=== PATIENT | female | born 1995 | race Caucasian/White ===

== ENCOUNTER 2017-05-26 07:23 | Emergency (ER) | payer OTHER ==
[2017-05-26 07:31] VITALS: BP 116/76; PULSE 78; TEMP 98.9; BMI 29.1
[2017-05-26 10:36] LABS: BASO % 0.3 % (0-2.0); EOS % 0.5 % (0-4.5); HEMATOCRIT 38.2 % (32.4-45.2); HEMOGLOBIN 12.3 GM/dL (10.7-15.3); LYMPH % 13.4 % (8-40); MCH 29.3 pg (25.7-33.7); MCHC 32.3 g/dl (32.0-36.0); MEAN CELL VOLUME 90.8 fl (80-96); MEAN PLT VOLUME 7.5 fl (7.5-11.1); MONO % 7.5 % (3.8-10.2); NEUT % 78.3 % (42.8-82.8); PLATELET COUNT 324 K/MM3 (134-434); RBC 4.21 M/mm3 (3.60-5.2); RDW 13.2 % (11.6-15.6); WHITE BLOOD COUNT 11.5 K/mm3 (4.0-10.0)
[2017-05-26 10:54] LABS: URINE APPEARANCE CLEAR; URINE BILIRUBIN NEGATIVE (NEGATIVE); URINE BLOOD NEGATIVE (NEGATIVE); URINE COLOR LTYELLOW; URINE GLUCOSE (UA) NEGATIVE (NEGATIVE); URINE KETONE NEGATIVE (NEGATIVE); URINE NITRITE NEGATIVE (NEGATIVE); URINE PROTEIN NEGATIVE (NEGATIVE); URINE UROBILINOGEN NEGATIVE mg/dL (0.2-1.0)
[2017-05-26 11:01] LABS: ALBUMIN 3.9 g/dl (3.4-5.0); ANION GAP 5 (8-16); BILIRUBIN,TOTAL 0.3 mg/dL (0.2-1.0); BLOOD UREA NITROGEN 6 mg/dL (7-18); CALCIUM 8.5 mg/dL (8.5-10.1); CHLORIDE 107 mmol/L (98-107); CO2 25 mmol/L (21-32); CREATININE 0.6 mg/dL (0.55-1.02); GLUCOSE,RANDOM 92 mg/dL (74-106); POTASSIUM 4.1 mmol/L (3.5-5.1); SGOT/AST 12 U/L (15-37); SGPT/ALT 17 U/L (12-78); SODIUM 137 mmol/L (136-145)
[2017-05-26 11:03] LABS: ALK PHOS 79 U/L (45-117); TOT PROT 7.3 g/dl (6.4-8.2)
[2017-05-26 11:04] LABS: HCG,QUALITATIVE URINE NEGATIVE
--- NOTE | 2017-05-26 11:31 | PDOC ---
History of Present Illness - General History Source: Patient Exam Limitations: No Limitations - History of Present Illness Initial Comments: 05/26/17 11:31 The patient is a 21 year old female, with no significant past medical history who presents to the emergency department with headache, abdominal pain and L leg pain. Patient reports intermittent tension headache, radiating from forehead to both eyes for the past week. Patient denies vision changes, light/ sound sensitivity, speech changes or neck stiffness. Patient has been taking 2 Extra strength Tylenols and Excedrin daily with no relief. Patient reports L vo pain radiating to feet for the past several months. Patient notes pain is worse at night and takes mothers Tramadol. Patient denies trauma or injury to the area. Patient also endorses abdominal pain that began 2 days ago with associated clear vomiting (nonbilious, nonbloody) and constipation. Patient reports to the ED for further evaluation of her complaints. LMP was Apr 25, 2016. Patient denies chest pain, headache or dizziness. Patient denies fever, chills, abdominal pain, nausea, vomit, diarrhea or constipation. Patient denies dysuria, frequency, urgency or hematuria. Patient denies sick contacts or recent travel. Allergies: NKA Past surgical history: None Social history: None PCP: None <Nicole Helton - Last Filed: 05/26/17 11:31> <Carlos Rajput - Last Filed: 05/26/17 12:30> - General Chief Complaint: Pain, Acute Stated Complaint: VOMITING,ABD PAIN Time Seen by Provider: 05/26/17 09:14 Past History <Nicole Helton - Last Filed: 05/26/17 11:31> - Past Medical History COPD: No - Suicide/Smoking/Psychosocial Hx Smoking History: Never smoked Have you smoked in the past 12 months: No Information on smoking cessation initiated: No Hx Alcohol Use: No Drug/Substance Use Hx: No Substance Use Type: None <Carlos Rajput - Last Filed: 05/26/17 12:30> - Past Medical History Allergies/Adverse Reactions: Allergies Allergy/AdvReac Type Severity Reaction Status Date / Time No Known Allergies Allergy Verified 05/26/17 07:26 Home Medications: Ambulatory Orders Nitrofurantoin Monohyd/M-Cryst [Macrobid -] 100 mg PO BID #14 capsule 05/26/17 Review of Systems - Review of Systems Constitutional: No: Chills, Fever, Night Sweats HEENTM: No: Blurred Vision, Nose Congestion Respiratory: No: Cough, Shortness of Breath Cardiac (ROS): No: Chest Pain ABD/GI: Yes: Constipated, Vomiting. No: Diarrhea, Nausea : No: Dysuria, Frequency Musculoskeletal: Yes: Muscle Pain Neurological: Yes: Headache Endocrine: No: Unexplained Weight Gain, Unexplained Weight Loss All Other Systems: Reviewed and Negative <Carlos Rajput - Last Filed: 05/26/17 12:30> *Physical Exam - Vital Signs Last Vital Signs Temp Pulse Resp BP Pulse Ox 98.9 F 78 18 116/76 100 05/26/17 07:27 05/26/17 07:27 05/26/17 07:27 05/26/17 07:27 05/26/17 07:27 - Physical Exam Comments: 05/26/17 11:32 GENERAL: The patient is awake, alert, and fully oriented, in no acute distress. HEAD: Normal with no signs of trauma. EYES: Pupils equal, round and reactive to light, extraocular movements intact, sclera anicteric, conjunctiva clear with no pallor. ENT: Ears normal, nares patent, oropharynx clear without exudates. Moist mucous membranes. NECK: Normal range of motion, supple without lymphadenopathy, JVD, or masses. LUNGS: Breath sounds equal, clear to auscultation bilaterally. No wheeze/ crackles. HEART: Regular rate and rhythm, normal S1 and S2 without murmur or rub. ABDOMEN: Soft/nontender/nondistended. BS wnl. No guarding or rebound. No palpable masses. No hepatosplenomegaly. EXTREMITIES: Normal range of motion, no edema. No clubbing or cyanosis. No cords, erythema, or tenderness. NEUROLOGICAL: Mental status: The patient is alert and oriented x3. Cranial nerves: Cranial nerves II through XII are intact Motor: The upper extremities are 5 over 5 in all muscle groups. The lower extremities are 5 over 5 in all muscle groups. No pronator drift. Sensation: Sensation is intact to light touch throughout. Cerebellar: Oajqzs-faqkpg-bsds is normal in both upper extremities. Heel-knee- vo is normal in both lower extremities. Reflexes: 2+ and symmetric in the upper and lower extremities. Gait: Normal. Heel and toe walking are normal. Tandem gait is normal. PSYCH: Normal mood, normal affect. SKIN: Warm, Dry, normal turgor, no rashes or lesions noted. <Nicole Helton - Last Filed: 05/26/17 11:31> - Vital Signs Last Vital Signs Temp Pulse Resp BP Pulse Ox 98.9 F 78 18 116/76 100 05/26/17 07:27 05/26/17 07:27 05/26/17 07:27 05/26/17 07:27 05/26/17 07:27 <Carlos Rajput - Last Filed: 05/26/17 12:30> ED Treatment Course - LABORATORY CBC & Chemistry Diagram: 05/26/17 10:18 05/26/17 10:18 - ADDITIONAL ORDERS Additional order review: Laboratory Results 05/26/17 05/26/17 10:35 10:18 Sodium 137 Potassium 4.1 Chloride 107 Carbon Dioxide 25 Anion Gap 5 L BUN 6 L Creatinine 0.6 Creat Clearance w eGFR > 60 Random Glucose 92 Calcium 8.5 Total Bilirubin 0.3 AST 12 L ALT 17 Alkaline Phosphatase 79 Total Protein 7.3 Albumin 3.9 Urine HCG, Qual Negative 05/26/17 10:18 RBC 4.21 MCV 90.8 MCHC 32.3 RDW 13.2 MPV 7.5 Neutrophils % 78.3 Lymphocytes % 13.4 Monocytes % 7.5 Eosinophils % 0.5 Basophils % 0.3 <Nicole Helton - Last Filed: 05/26/17 11:31> - LABORATORY CBC & Chemistry Diagram: 05/26/17 10:18 05/26/17 10:18 - ADDITIONAL ORDERS Additional order review: Laboratory Results 05/26/17 05/26/17 10:35 10:18 Sodium 137 Potassium 4.1 Chloride 107 Carbon Dioxide 25 Anion Gap 5 L BUN 6 L Creatinine 0.6 Creat Clearance w eGFR > 60 Random Glucose 92 Calcium 8.5 Total Bilirubin 0.3 AST 12 L ALT 17 Alkaline Phosphatase 79 Total Protein 7.3 Albumin 3.9 Urine HCG, Qual Negative 05/26/17 10:18 RBC 4.21 MCV 90.8 MCHC 32.3 RDW 13.2 MPV 7.5 Neutrophils % 78.3 Lymphocytes % 13.4 Monocytes % 7.5 Eosinophils % 0.5 Basophils % 0.3 <Carlos Rajput - Last Filed: 05/26/17 12:30> Medical Decision Making - Medical Decision Making 05/26/17 11:27 A portion of this note was documented by scribe services under my direction. I have reviewed the details of the note, within reason, and agree with the documentation with the following case summary and management plan written by me. Healthy 21-year-old female with no significant past medical history presents with several nonspecific complaints that have been ongoing for months. Patient reports several months of nighttime left vo pain, no difficulty ambulating and has no pain during the day. No motor or sensory deficits, no traumatic history. Also now complaining of nonspecific symptoms of generalized malaise and intermittent bitemporal headache, no associated vision changes or speech changes or focal weakness, no trauma. No constitutional symptoms, no travel, no toxic habits. Patient self treats her headache with Tylenol and Excedrin, self treats her leg pain with her mother's tramadol. Vital signs normal Urine is negative Exam is completely normal, including neurological exam 21-year-old female presents with nonspecific and chronic complaints, no red flags on history or physical exam, no abnormal findings. CBC and chemistry are within normal limits, no anemia or leukocytosis Urine is negative, urinalysis pending No indication for emergent imaging, needs PCP referral which we will provide. 05/26/17 12:23 White count 11.5, normal differential. Chemistries are within normal limits, urinalysis with 2+ leuk esterase and 7 white blood cells, urine negative. Urine culture sent, will treat empirically for UTI, give PMD referral and return precautions. <Carlos Rajput - Last Filed: 05/26/17 12:30> *DC/Admit/Observation/Transfer - Attestations Scribe Attestion: 05/26/17 11:32 Documentation prepared by Nicole Helton, acting as medical office administrator for Carlos Rajput MD <Nicole Helton - Last Filed: 05/26/17 11:31> <Carlos Rajput - Last Filed: 05/26/17 12:30> Diagnosis at time of Disposition: Chronic headache Qualifiers: Headache type: unspecified Intractability: not intractable Qualified Code(s): R51 - Headache UTI (urinary tract infection) Qualifiers: Urinary tract infection type: acute cystitis Hematuria presence: without hematuria Qualified Code(s): N30.00 - Acute cystitis without hematuria - Discharge Dispostion Disposition: HOME Condition at time of disposition: Good - Prescriptions Prescriptions: Nitrofurantoin Monohyd/M-Cryst [Macrobid -] 100 mg PO BID #14 capsule - Referrals Referrals: Forrest Marin [Primary Care Provider] - Stephan Rodriguez MD [Staff Physician] - Lucian Harris MD [Staff Physician] - - Patient Instructions Printed Discharge Instructions: DI for Urinary Tract Infection (UTI), DI for Headache Additional Instructions: Activity as tolerated. Stay hydrated. Blood tests today were normal, but a urine test shows evidence of infection. Take Macrobid as prescribed as an antibiotic. Tylenol 1000 mg every 8 hours and/or ibuprofen 600 mg every 8 hours as needed for pain. Avoid using tramadol, this can cause constipation and can be addicting. For constipation relief, take [id number] MiraLAX or fleets enemas. You should follow up with a primary doctor as soon as possible regarding today' s emergency department visit. Consider calling the [facility]/Dr. Harris or Dr. Rodriguez for an appointment. Outpatient imaging of your leg can be done if your leg pain persists. Return to the emergency department for any new or concerning symptoms, particularly severe headache, vomiting or confusion or focal weakness, fevers or chills, difficulty urinating or flank pain. - Post Discharge Activity
[2017-05-26 11:33] LABS: URINE LEUK ESTERASE 2+ (NEGATIVE)
[2017-05-26 11:58] LABS: EPI CELLS RARE /HPF (FEW); URINE MUCUS MANY
== END 2017-05-26 12:38 | disposition home or self-care (01) ==
LOC: JER 07:23
DX: N30.00 Acute cystitis without hematuria (principal); R51 Headache
CPT/HCPCS: 36415; 80053; 81003; 81015; 84703; 85025; 87086; 99283-25

== ENCOUNTER 2017-08-16 05:11 | Emergency (ER) | payer OTHER ==
[2017-08-16 05:26] VITALS: TEMP 98.7; BMI 27.3
--- NOTE | 2017-08-16 05:35 | PDOC ---
History of Present Illness - General Chief Complaint: Pain, Acute Stated Complaint: PAIN History Source: Patient Exam Limitations: No Limitations - History of Present Illness Initial Comments: The patient is a 21 yo F with no significant PMHx presenting with lower abdominal pain since 10pm yesterday. The pain was sudden in onset, located in the suprapubic region, was cramping in nature, non radiating 7/10, lasted for a few minutes then resolved spontaneously. She had just got out of school when it happened and was able to ride the bus and walk to get home. At about midnight, the pain resumed, at about 8-9/10 and remained constant and cramping stilll in the suprapubic area until she presented in the emergency room. In the emergency room, she moved her bowel- of soft, non bloody stool and had one episode of nonbloody, non bilous vomiting. This brought the pain to a 3-4/10. No dysuria, no burning on micturition, no previous hx of stones. Pt's last meal was around 5pm yesterday of fresh homemade food. No hx od similar symptoms in anyone else. No hx of jaundice, diarrhea or constipation, hx of passage of stones or vaginal discharge. Patient had similar symptoms about 6 weeks prior that resolved on its own. Pt denies use of any medication, no alcohol or drug abuse. LMP was approximately 2weeks ago usually lasting 3-4 days. Patient denies being sexually active. Timing/Duration: changing over time Severity: moderate Associated Symptoms: reports: headaches, nausea/vomiting (one episode of vomiting). denies: chest pain, cough, diaphoresis, fever/chills, loss of appetite, shortness of breath Past History - Past Medical History Allergies/Adverse Reactions: Allergies Allergy/AdvReac Type Severity Reaction Status Date / Time No Known Allergies Allergy Verified 08/16/17 05:24 Home Medications: Ambulatory Orders NK [No Known Home Medication] 08/16/17 COPD: No - Suicide/Smoking/Psychosocial Hx Smoking History: Never smoked Have you smoked in the past 12 months: No Information on smoking cessation initiated: No Hx Alcohol Use: No Drug/Substance Use Hx: No Substance Use Type: None Review of Systems - Review of Systems Able to Perform ROS?: Yes Is the patient limited Tamazight proficient: No Constitutional: No: Chills, Diaphoresis, Fever, Loss of Appetite, Malaise, Night Sweats HEENTM: No: Throat Pain, Throat Swelling Respiratory: No: Cough, Shortness of Breath, SOB with Exertion, Stridor, Wheezing Cardiac (ROS): No: Chest Pain, Edema ABD/GI: Yes: Nausea, Poor Fluid Intake, Vomiting (one episode), Abdominal cramping. No: Abdominal Distended, Constipated, Diarrhea : No: Burning, Dysuria, Discharge, Frequency, Flank Pain, Hematuria, Urgency Musculoskeletal: No: Joint Pain, Joint Swelling, Joint Stiffness Integumentary: No: Change in Color, Rash Neurological: Yes: Headache (intermittent occipital headache) Hematologic/Lymphatic: No: Bleeding Diathesis *Physical Exam - Vital Signs Last Vital Signs Temp Pulse Resp BP Pulse Ox 98.7 F 88 18 124/83 100 08/16/17 05:24 08/16/17 05:24 08/16/17 05:24 08/16/17 05:24 08/16/17 05:24 - Physical Exam General Appearance: Yes: Appropriately Dressed. No: Apparent Distress HEENT: positive: EOMI, GINGER, Normal ENT Inspection, Symmetrical. negative: Tonsillar Erythema, Nasal Congestion Neck: positive: Supple. negative: Tender Respiratory/Chest: positive: Normal Breath Sounds. negative: Chest Tender, Respiratory Distress Cardiovascular: positive: Regular Rate, S1, S2. negative: Edema Gastrointestinal/Abdominal: positive: Normal Bowel Sounds, Flat, Soft. negative : Tenderness Musculoskeletal: negative: CVA Tenderness Extremity: positive: Normal Capillary Refill, Normal Inspection, Normal Range of Motion Integumentary: positive: Dry, Warm. negative: Jaundice Neurologic: positive: Fully Oriented, Alert, Motor Strength 5/5 ED Treatment Course - LABORATORY CBC & Chemistry Diagram: 08/16/17 06:55 08/16/17 06:55 Medical Decision Making - Medical Decision Making 08/16/17 06:44 Patient's pain completely resolved after the patient passed stool and threw up once in the ED. Differential diagnosis include: Ectopic LMP-2 weeks ago, UTI, renal stones, mid cycle pain, acute pancreatitis CBC, CMP, UA, hcg, lipase When the urine sample was collected, it showed very dark almost coke-colored urine Patient was hydrated with one liter of normal saline. Pending lab results- patient was signed out to the day team. *DC/Admit/Observation/Transfer Diagnosis at time of Disposition: Abdominal discomfort Hematuria Qualifiers: Hematuria type: asymptomatic microscopic Qualified Code(s): R31.21 - Asymptomatic microscopic hematuria - Discharge Dispostion Disposition: HOME Condition at time of disposition: Stable - Referrals Referrals: Forrest Marin [Primary Care Provider] - - Patient Instructions Printed Discharge Instructions: Blood in Urine Additional Instructions: You were seen here for your abdominal discomfort. Your labs were normal, however your urine showed many red blood cells. Your CAT scan showed no kidney stones at this point. We recommend you follow with your primary physician to follow the blood in your urine If you develop any concerning symptoms such as pain while urinating or shortness of breath please feel free to return to the ED. - Post Discharge Activity
--- NOTE | 2017-08-16 06:16 | PDOC ---
Attending Attestation - Resident Resident Name: Glenis Smith I - ED Attending Attestation I have performed the following: I have examined & evaluated the patient, The case was reviewed & discussed with the resident, I agree w/resident's findings & plan, Exceptions are as noted - HPI HPI: 08/16/17 06:15 21y F no significant pmhx presents with lower abdominal pain starting last night without n/v, fever/chills, hematuria, frequency, diarrhea, melena, bpr, cp , sob. on exam pt well appearing in no disstress abd soft nontender ddx includes ovarian pain/mittlsmiertz (pt 2 weeks after her last period), , uti/cystitis will ck labs, ua will reassess
[2017-08-16] MEDS ORDERED: SODIUM CHLORIDE 0.9% 500 ML INFUS.BAG IV ONE (06:49)
[2017-08-16 07:09] LABS: URINE APPEARANCE TURBID; URINE BILIRUBIN NEGATIVE (<2.0 mg/dL); URINE BLOOD 3+ (NEGATIVE); URINE GLUCOSE (UA) NEGATIVE (NEGATIVE); URINE KETONE 1+ (NEGATIVE); URINE LEUK ESTERASE NEGATIVE (NEGATIVE); URINE NITRITE NEGATIVE (NEGATIVE); URINE UROBILINOGEN NEGATIVE mg/dL (0.2-1.0)
[2017-08-16 07:10] LABS: BASO % 0.5 % (0-2.0); EOS % 1.2 % (0-4.5); HEMATOCRIT 38.4 % (32.4-45.2); HEMOGLOBIN 12.8 GM/dL (10.7-15.3); LYMPH % 15.3 % (8-40); MCHC 33.2 g/dl (32.0-36.0); MEAN CELL VOLUME 90.3 fl (80-96); MEAN PLT VOLUME 8.2 fl (7.5-11.1); MONO % 8.8 % (3.8-10.2); NEUT % 74.2 % (42.8-82.8); PLATELET COUNT 329 K/MM3 (134-434); RBC 4.25 M/mm3 (3.60-5.2); RDW 14.2 % (11.6-15.6); WHITE BLOOD COUNT 10.4 K/mm3 (4.0-10.0)
--- NOTE | 2017-08-16 07:14 | PDOC ---
*Physical Exam - Vital Signs Last Vital Signs Temp Pulse Resp BP Pulse Ox 98.7 F 88 18 124/83 100 08/16/17 05:24 08/16/17 05:24 08/16/17 05:24 08/16/17 05:24 08/16/17 05:24 - Physical Exam Comments: 08/16/17 07:13 21yo F who was signed out to me by Dr. Smith. Came in with abdominal pain which resolved and presented with dark urine. Awaiting UA and labs. No complaints at this time. ED Treatment Course - LABORATORY CBC & Chemistry Diagram: 08/16/17 06:55 08/16/17 06:55 - Medications Given in the ED: ED Medications Discontinued Medications Generic Name Dose Route Start Last Admin Trade Name Freq PRN Reason Stop Dose Admin Sodium Chloride 1,000 ml 08/16/17 06:49 08/16/17 07:09 Normal Saline - IV 08/16/17 06:50 1,000 ml ONCE ONE Administration Medical Decision Making - Medical Decision Making 08/16/17 07:56 3+ Blood in urine with many RBCs DDx kidney stone Pt without any abdominal pain currently, but agreeable to CT scan 08/16/17 08:44 CT report showing no ureteral calculus or hydronephrosis. Pt currently asymptomatic without tenderness and can tolerate fluids so clinically doubt any colitis. Pt to follow with PCP for hematuria and okay to discharge *DC/Admit/Observation/Transfer Diagnosis at time of Disposition: Abdominal discomfort Hematuria Qualifiers: Hematuria type: asymptomatic microscopic Qualified Code(s): R31.21 - Asymptomatic microscopic hematuria - Discharge Dispostion Disposition: HOME Condition at time of disposition: Stable Admit: No - Referrals Referrals: Forrest Marin [Primary Care Provider] - - Patient Instructions Additional Instructions: You were seen here for your abdominal discomfort. Your labs were normal, however your urine showed many red blood cells. Your CAT scan showed no kidney stones at this point. We recommend you follow with your primary physician to follow the blood in your urine If you develop any concerning symptoms such as pain while urinating or shortness of breath please feel free to return to the ED. - Post Discharge Activity
[2017-08-16 07:19] LABS: URINE COLOR DK YELLOW; URINE PROTEIN 2+ (NEGATIVE)
[2017-08-16 07:22] LABS: EPI CELLS RARE /HPF (FEW); URINE MUCUS MANY
[2017-08-16 07:35] LABS: ALBUMIN 4.2 g/dl (3.4-5.0); ALK PHOS 82 U/L (45-117); ANION GAP 4 (8-16); BILIRUBIN,TOTAL 0.4 mg/dL (0.2-1.0); BLOOD UREA NITROGEN 8 mg/dL (7-18); CALCIUM 9.2 mg/dL (8.5-10.1); CHLORIDE 107 mmol/L (98-107); CO2 28 mmol/L (21-32); CREATININE 0.7 mg/dL (0.55-1.02); GLUCOSE,RANDOM 103 mg/dL (74-106); POTASSIUM 3.9 mmol/L (3.5-5.1); SGOT/AST 11 U/L (15-37); SGPT/ALT 11 U/L (12-78); SODIUM 139 mmol/L (136-145); TOT PROT 7.8 g/dl (6.4-8.2)
[2017-08-16 09:15] VITALS: BP 109/68; PULSE 76
== END 2017-08-16 09:15 | disposition home or self-care (01) ==
LOC: JER 05:11
DX: R10.30 Lower abdominal pain, unspecified (principal); R31.21 Asymptomatic microscopic hematuria
CPT/HCPCS: 36415; 74176; 80053; 81003; 81015; 83690; 84703; 85025; 99284-25

== ENCOUNTER 2017-08-20 06:20 | Emergency (ER) | payer OTHER ==
[2017-08-20 06:56] VITALS: BP 110/73; PULSE 75; TEMP 98.7; BMI 23.1
--- NOTE | 2017-08-20 06:57 | PDOC ---
History of Present Illness - General Chief Complaint: Pain Stated Complaint: ABD PAIN Time Seen by Provider: 08/20/17 06:55 History Source: Patient - History of Present Illness Initial Comments: 08/20/17 07:12 Patient is a 21 year old female who presents to the ED c/o abdominal pain. Pain is sharp, 10/10, localized to her mid lower abdomen without radiation and patient cannot identify any triggering or relieving factors. Patient is tolerating PO intake and states her last BM was prior to presentation this morning. As per EMR patient was evaluated in our facilty on 08/16/[address] showed no nephrolithiasis possible colitis. Patient denies chest pain, headache or dizziness. Patient denies fever, chills, abdominal pain, nausea, vomit, diarrhea or constipation. Patient denies dysuria, frequency, urgency or hematuria. Patient denies sick contacts or recent travel. Allergies: NKA Past surgical history: None Social history: None PCP: None Past History - Past Medical History Allergies/Adverse Reactions: Allergies Allergy/AdvReac Type Severity Reaction Status Date / Time No Known Allergies Allergy Verified 08/20/17 06:56 Home Medications: Ambulatory Orders Nitrofurantoin Monohyd/M-Cryst [Macrobid -] 100 mg PO BID #14 capsule 08/20/17 Ondansetron HCl [Zofran] 4 mg PO BID #6 tablet 08/20/17 Phenazopyridine HCl [Pyridium] 200 mg PO TID 2 Days #6 tablet 08/20/17 COPD: No - Suicide/Smoking/Psychosocial Hx Smoking History: Never smoked Have you smoked in the past 12 months: No Information on smoking cessation initiated: No Hx Alcohol Use: No Drug/Substance Use Hx: No Substance Use Type: None Review of Systems - Review of Systems Constitutional: No: Chills, Fever HEENTM: No: Recent change in vision Respiratory: No: Cough, Shortness of Breath Cardiac (ROS): No: Chest Pain, Lightheadedness, Palpitations, Syncope ABD/GI: Yes: Nausea. No: Constipated, Diarrhea, Vomiting : No: Burning, Dysuria *Physical Exam - Vital Signs Last Vital Signs Temp Pulse Resp BP Pulse Ox 98.7 F 75 18 110/73 100 08/20/17 06:53 08/20/17 06:53 08/20/17 06:53 08/20/17 06:53 08/20/17 06:53 - Physical Exam General Appearance: Yes: Nourished, Appropriately Dressed Neck: positive: Trachea midline, Supple Respiratory/Chest: positive: Lungs Clear Cardiovascular: positive: S1, S2. negative: Edema, JVD Gastrointestinal/Abdominal: positive: Normal Bowel Sounds, Soft, Other ( Suprapubic TTP). negative: Distended, Guarding, Rebound Musculoskeletal: negative: CVA Tenderness (R), CVA Tenderness (L) Extremity: positive: Normal Capillary Refill, Normal Inspection Integumentary: positive: Normal Color, Dry, Warm ED Treatment Course - LABORATORY CBC & Chemistry Diagram: 08/20/17 07:20 08/20/17 07:20 Medical Decision Making - Medical Decision Making 08/20/17 07:21 21 year old well appearing female presents to ED c/o abdominal pain. Frontal diagnosis includes colitis, cystitis, . Will obtain belly labs, serum . GI cocktail. Reassess. 08/20/17 08:09 CBC shows no leukocytosis, CMP/Lipase pending. Serum cocktail 08/20/17 08:19 Patient requesting PO intake, "oatmeal" -- receiving GI cocktail. 08/20/17 08:31 UA shows 3+ blood, no WBC, rare epithelial cells. Lipase and lactate wnL. 08/20/17 08:47 Repeat belly exam shows no TTP, normoactive BS, patient tolerating PO intake, improved. Clinical suspicion for acute cystitis given localized suprapubic pain /TTP and 3+ blood in UA. Will discharge home with Pyridium + abx. Patient will likely need outpatient cystoscopy. I discussed the physical exam findings, ancillary test results and final diagnoses with the patient. I answered all of the patient's questions. The patient was satisfied with the care received and felt comfortable with the discharge plan and treatment plan. The patient will return to the Emergency Department with any new, persistent or worsening symptoms. *DC/Admit/Observation/Transfer Diagnosis at time of Disposition: Abdominal pain - Discharge Dispostion Disposition: HOME Condition at time of disposition: Fair Admit: No - Prescriptions Prescriptions: Nitrofurantoin Monohyd/M-Cryst [Macrobid -] 100 mg PO BID #14 capsule Ondansetron HCl [Zofran] 4 mg PO BID #6 tablet Phenazopyridine HCl [Pyridium] 200 mg PO TID 2 Days #6 tablet - Referrals Referrals: Forrest Marin [Primary Care Provider] - - Patient Instructions Printed Discharge Instructions: DI for Acute Cystitis Additional Instructions: You were evaluated today for abdominal pain. An antibiotic and a pain medication has been sent to your pharmacy. Please take the entire antibiotic course. Follow up with your primary care doctor on Tuesday. Return to the Emergency Department for any new/worsening/concerning symptoms. - Post Discharge Activity
[2017-08-20] MEDS ORDERED: FAMOTIDINE IV 20 MG/12 ML VIAL IVPUSH ONE (07:19)
[2017-08-20] MEDS ORDERED: SODIUM CHLORIDE 0.9% 500 ML INFUS.BAG IV ONE (07:19)
[2017-08-20] MEDS ORDERED: MAG HYDROX/AL HYDROX/SIMETH 30 ML UNIT-DOSE CUP PO ONE (07:19)
[2017-08-20] MEDS ORDERED: MAG HYDROX/AL HYDROX/SIMETH 30 ML UNIT-DOSE CUP ONE (07:24)
[2017-08-20] MEDS ORDERED: FAMOTIDINE 20 MG/50 ML IVPB 20 MG/50 ML MG IVPB ONE (07:24)
[2017-08-20 07:36] LABS: BASO % 0.3 % (0-2.0); EOS % 1.7 % (0-4.5); HEMOGLOBIN 11.9 GM/dL (10.7-15.3); LYMPH % 19.1 % (8-40); MCH 30.6 pg (25.7-33.7); MCHC 34.1 g/dl (32.0-36.0); MEAN CELL VOLUME 89.8 fl (80-96); MEAN PLT VOLUME 8.4 fl (7.5-11.1); MONO % 11.3 % (3.8-10.2); NEUT % 67.6 % (42.8-82.8); PLATELET COUNT 301 K/MM3 (134-434); RDW 14.1 % (11.6-15.6); WHITE BLOOD COUNT 9.2 K/mm3 (4.0-10.0)
[2017-08-20 07:56] LABS: URINE APPEARANCE SLCLOUDY; URINE BILIRUBIN NEGATIVE (<2.0 mg/dL); URINE BLOOD 3+ (NEGATIVE); URINE COLOR YELLOW; URINE GLUCOSE (UA) NEGATIVE (NEGATIVE); URINE KETONE NEGATIVE (NEGATIVE); URINE NITRITE NEGATIVE (NEGATIVE); URINE UROBILINOGEN NEGATIVE mg/dL (0.2-1.0)
[2017-08-20 08:00] LABS: URINE LEUK ESTERASE 1+ (NEGATIVE); URINE PROTEIN 1+ (NEGATIVE)
[2017-08-20 08:02] LABS: EPI CELLS RARE /HPF (FEW); URINE MUCUS FEW
[2017-08-20 08:23] LABS: ALBUMIN 3.8 g/dl (3.4-5.0); ALK PHOS 73 U/L (45-117); ANION GAP 7 (8-16); BILIRUBIN,TOTAL 0.3 mg/dL (0.2-1.0); BLOOD UREA NITROGEN 10 mg/dL (7-18); CALCIUM 8.8 mg/dL (8.5-10.1); CHLORIDE 108 mmol/L (98-107); CO2 25 mmol/L (21-32); CREATININE 0.7 mg/dL (0.55-1.02); GLUCOSE,RANDOM 100 mg/dL (74-106); LIPASE 130 U/L (73-393); POTASSIUM 4.2 mmol/L (3.5-5.1); SGOT/AST 11 U/L (15-37); SGPT/ALT 9 U/L (12-78); SODIUM 140 mmol/L (136-145)
--- NOTE | 2017-08-23 07:27 | PDOC ---
Patient Follow-up (Call Back) - Post ED Follow - Up Condition at time of discharge: Fair Disposition at time of original discharge: HOME Reason for Call Back: Abnwl. Microbiology (Patient currently on Macrobid. Urine culture shows preliminary organism 1strep agalactiae group B. Will await final report.)
--- NOTE | 2017-08-24 14:56 | PDOC ---
Patient Follow-up (Call Back) - Post ED Follow - Up Condition at time of discharge: Fair Disposition at time of original discharge: HOME Reason for Call Back: Abnwl. Microbiology (Bacteria sensitive to penicillin, amoxicillin. Macrobid not appropriate to treat S. Agalctaie. Amoxicillin rx sent to pharmacy. Pt agrees to take the medication and will stop macrobid.)
== END 2017-08-20 08:59 | disposition home or self-care (01) ==
LOC: JER 06:20
PROC: 3E033GC Introduction of Other Therapeutic Substance into Peripheral Vein, Percutaneous Approach (ICD-10-PCS; principal; 2017-08-20)
DX: N30.01 Acute cystitis with hematuria (principal)
CPT/HCPCS: 36415; 80053; 81003; 81015; 83605; 83690; 84703; 85025; 87086; 87186; 96374; 99283-25

== ENCOUNTER 2018-01-09 08:19 | Emergency (ER) | payer OTHER ==
[2018-01-09 08:39] VITALS: BP 106/59; PULSE 81; TEMP 98.7; BMI 30.6
[2018-01-09] MEDS ORDERED: diphenhydrAMINE HCL 25 MG CAPSULE (FP) PO ONE ×2 (08:56→08:59)
--- NOTE | 2018-01-09 09:01 | PDOC ---
History of Present Illness - General Chief Complaint: Eye Problem Stated Complaint: FACE SWOLLEN/ ICHY ALL OVER BODY Time Seen by Provider: 01/09/18 08:47 History Source: Patient Exam Limitations: No Limitations - History of Present Illness Initial Comments: 01/09/18 09:02 State had onset of itching rash to back of legs last night. Has not had any recent exposures, has not been outdoors, no one else at home has a rash. States suffered from unknown type of urticaria as a child where she would break out in hives and they were never identified as to cause. Patient denies any changes of soaps, creams, detergents. Has not had any recent travel or known infestation. Taken no medication or used any creams for relief of same. States suffered also on face and had left eyelid that was swollen this morning with some mild discoloration and scaliness. Denies trauma, any recent illness, no history of eczema Timing/Duration: unsure, 24 hours Severity: moderate Associated Symptoms: reports: rash. denies: cough, fever/chills, loss of appetite, malaise, nausea/vomiting Past History - Travel Traveled outside of the country in the last 30 days: No Close contact w/someone who was outside of country & ill: No - Past Medical History Allergies/Adverse Reactions: Allergies Allergy/AdvReac Type Severity Reaction Status Date / Time No Known Allergies Allergy Verified 01/09/18 08:33 Home Medications: Ambulatory Orders Ondansetron HCl [Zofran] 4 mg PO BID #6 tablet 08/20/17 Phenazopyridine HCl [Pyridium] 200 mg PO TID 2 Days #6 tablet 08/20/17 Amoxicillin - [Amoxicillin 500mg Capsule -] 500 mg PO BID #14 capsule 08/24/17 Diphenhydramine HCl [Benadryl -] 25 mg PO Q8H PRN #21 capsule 01/09/18 COPD: No DVT: No Other medical history: lmp 12/14/17 - Suicide/Smoking/Psychosocial Hx Smoking History: Never smoked Have you smoked in the past 12 months: No Hx Alcohol Use: No Drug/Substance Use Hx: No Substance Use Type: None Review of Systems - Review of Systems Able to Perform ROS?: Yes Is the patient limited Latvian proficient: Yes Constitutional: Yes: Symptoms Reported, See HPI. No: Fever, Loss of Appetite, Malaise HEENTM: Yes: Symptoms Reported, See HPI, Tearing (w/u with some swellign to upper left lid, no drainage, no inury, no redness. ). No: Eye Pain, Blurred Vision Respiratory: Yes: See HPI. No: Symptoms reported, Cough, Wheezing Integumentary: Yes: Symptoms Reported, See HPI, Lesions, Pruritus, Rash Neurological: Yes: See HPI. No: Symptoms reported, Headache All Other Systems: Reviewed and Negative *Physical Exam - Vital Signs Last Vital Signs Temp Pulse Resp BP Pulse Ox 98.7 F 81 16 106/59 99 01/09/18 08:25 01/09/18 08:25 01/09/18 08:25 01/09/18 08:25 01/09/18 08:25 - Physical Exam General Appearance: Yes: Nourished, Appropriately Dressed, Apparent Distress, Mild Distress HEENT: positive: GINGER, Normal ENT Inspection, Normal Voice (no swelling pharynx , tongue, or airway.), TMs Normal, Pharynx Normal, Other (left lid with mild excoriation and faint swelling to upper lid. ). negative: Nasal Congestion, Rhinorrhea Neck: positive: Supple. negative: Tender Respiratory/Chest: positive: Lungs Clear, Normal Breath Sounds. negative: Stridor, Wheezing Cardiovascular: positive: Regular Rhythm Musculoskeletal: positive: Normal Inspection Extremity: positive: Normal Capillary Refill, Normal Inspection, Normal Range of Motion. negative: Tender Integumentary: positive: Warm, Pale, Hives (multiple to bilateral thighs posterior, no vesicular patterns, states are better then were last night.), Rash Neurologic: positive: plate colorer II-XII NML intact, Fully Oriented, Alert, Normal Mood/ Affect, Normal Response, Motor Strength 5/5 Medical Decision Making - Medical Decision Making 01/09/18 09:06 Urticaria of unknown origin. No evidence of anaphylaxis infectiousness or infected lesions. Possible idiopathic. We will recommend conservative treatment with Benadryl and researched to try to identify any contributing factors. And we 'll refer to dermatology/supervisor functional testing for further study as needed *DC/Admit/Observation/Transfer Diagnosis at time of Disposition: Urticaria - Discharge Dispostion Disposition: HOME Condition at time of disposition: Stable Decision to Admit order: No - Referrals Referrals: Santosh Nath MD [Staff Physician] - - Patient Instructions Printed Discharge Instructions: DI for Hives Additional Instructions: Rest, keep cool and dry- avoid strenuous activity or hot /humid environments Less hot showers, no abrasive soaps May use heavy creams like Eucerin or Cetaphil to keep skin moist May apply Aveeno, calamine lotion, [id number] hydrocortisone creams as needed for symptoms May use Benadryl at night for antihistamine, Zyrtec/ Anna or Claritin for daytime antihistamine use to help with itching May use [id number] hydrocortisone cream on all areas except face Try to identify cause for rash and avoid exposures Followup with PMD in one week if no resolution Make appointment with chemistry tutor for evaluation when possible - Post Discharge Activity Forms/Work/School Notes: Back to Work
== END 2018-01-09 09:08 | disposition home or self-care (01) ==
LOC: JERFT 08:19
DX: L50.9 Urticaria, unspecified (principal)
CPT/HCPCS: 99281-25

== ENCOUNTER 2019-06-01 13:54 | Emergency (ER) | payer OTHER ==
[2019-06-01] MEDS ORDERED: SODIUM CHLORIDE 0.9% 500 ML INFUS.BAG IV ONE (14:11)
[2019-06-01] MEDS ORDERED: ONDANSETRON 4 MG/2 ML VIAL IVPB ONE (14:11)
--- NOTE | 2019-06-01 14:11 | PDOC ---
Rapid Medical Evaluation Chief Complaint: Nausea/Vomiting Time Seen by Provider: 06/01/19 14:08 Medical Evaluation: Allergies Allergy/AdvReac Type Severity Reaction Status Date / Time No Known Allergies Allergy Verified 01/09/18 08:33 06/01/19 14:08 23 year old NVD, abdominal pain since last night. sister with NV yesterday and is feeling better today PE; patient alert ox3. actively vomiting in triage A: gastroenteritis/ abdominal pain P;cbc, cmp ua urine Discharge Disposition - Diagnosis Gastroenteritis Abdominal pain Qualifiers: Abdominal location: generalized Qualified Code(s): R10.84 - Generalized abdominal pain - Referrals - Patient Instructions - Post Discharge Activity
[2019-06-01 14:17] VITALS: BMI 28.3
[2019-06-01] MEDS ORDERED: FAMOTIDINE 20 MG/50 ML IVPB 20 MG/50 ML MG IVPB ONE ×2 (14:41→15:14)
[2019-06-01] MEDS ORDERED: ACETAMINOPHEN 1000 MG/100 ML VIAL (NON FORMULARY) IVPB ONE (14:41)
[2019-06-01] MEDS ORDERED: SODIUM CHLORIDE 1,000 ML IV STA (14:42)
[2019-06-01] MEDS ORDERED: ACETAMINOPHEN INJECTION 100 ML IVPB ONE (15:13)
[2019-06-01] MEDS ORDERED: ONDANSETRON 4 MG/2 ML VIAL ONE (15:13)
--- NOTE | 2019-06-01 15:14 | PDOC ---
History of Present Illness - General Chief Complaint: Nausea/Vomiting Stated Complaint: ABD PAIN/NAUSEA Time Seen by Provider: 06/01/19 14:08 History Source: Patient Exam Limitations: No Limitations - History of Present Illness Initial Comments: 06/01/19 14:49 Patient is a 23F with no significant PMH here today complaining of diarrhea, vomiting, and LUQ abdominal pain that onset last night. Patient reports similar symptoms for her sister. Patient denies blood in vomit or diarrhea. Denies dysuria. LMP 2 weeks ago. No surgical history. Denies vaginal pain and vaginal discharge. Denies chest pain and shortness of breath. Denies fevers, endorses chills. Past History - Past Medical History Allergies/Adverse Reactions: Allergies Allergy/AdvReac Type Severity Reaction Status Date / Time No Known Allergies Allergy Verified 06/01/19 14:17 Home Medications: Ambulatory Orders Ondansetron [Zofran *Odt*] 4 mg SL BID #6 od.tablet 06/01/19 COPD: No DVT: No - Psycho Social/Smoking Cessation Hx Smoking History: Never smoked Have you smoked in the past 12 months: No Information on smoking cessation initiated: No Hx Alcohol Use: No Drug/Substance Use Hx: No Substance Use Type: None Review of Systems - Review of Systems Able to Perform ROS?: Yes Comments:: 06/01/19 15:14 GENERAL/CONSTITUTIONAL: No fever +chills. No weakness. HEAD, EYES, EARS, NOSE AND THROAT: No change in vision. No sore throat. CARDIOVASCULAR: No chest pain or shortness of breath RESPIRATORY: No cough, wheezing, or hemoptysis. GASTROINTESTINAL: +nausea, +vomiting, +diarrhea No constipation. GENITOURINARY: No dysuria, frequency, or change in urination. MUSCULOSKELETAL: No joint or muscle swelling or pain. No neck or back pain. SKIN: No rash NEUROLOGIC: No headache, vertigo, loss of consciousness, or change in strength/ sensation. ENDOCRINE: No increased thirst. No abnormal weight change HEMATOLOGIC/LYMPHATIC: No anemia, easy bleeding, or history of blood clots. ALLERGIC/IMMUNOLOGIC: No hives or skin allergy. *Physical Exam - Vital Signs Last Vital Signs Temp Pulse Resp BP Pulse Ox 99.9 F H 105 H 19 97/50 L 100 06/01/19 14:10 06/01/19 14:10 06/01/19 14:10 06/01/19 14:10 06/01/19 14:10 - Physical Exam 06/01/19 15:15 GENERAL: Awake, alert, and fully oriented, in no acute distress HEAD: No signs of trauma, normocephalic, atraumatic EYES: PERRLA, EOMI, sclera anicteric, conjunctiva clear ENT: Auricles normal inspection, hearing grossly normal, nares patent, oropharynx clear without exudates. Moist mucosa NECK: Normal ROM, supple, no lymphadenopathy, JVD, or masses LUNGS: No distress, speaks full sentences, clear to auscultation bilaterally HEART: Regular rate and rhythm, normal S1 and S2, no murmurs, rubs or gallops, peripheral pulses normal and equal bilaterally. ABDOMEN: Soft, LUQ tenderness. No guarding, no rebound. No masses EXTREMITIES: Normal inspection, Normal range of motion, no edema. No clubbing or cyanosis. NEUROLOGICAL: Cranial nerves II through XII grossly intact. Normal speech, no focal sensorimotor deficits SKIN: Warm, Dry, normal turgor, no rashes or lesions noted. ED Treatment Course - LABORATORY CBC & Chemistry Diagram: 06/01/19 15:05 06/01/19 15:05 Medical Decision Making - Medical Decision Making 06/01/19 15:16 Patient is 23F here today with vomiting, diarrhea, LUQ abdominal pain. Vitals notable for tachycardia, oral temp 99.9. DDx includes, but is not limited to: gastroenteritis, metabolic abnormalities, food poisoning. Do not believe kaleb, appy or other similar process is likely given HPI and PE. Will draw cbc, cmp, lipase, ua, upreg. Will treat with fluids and GI cocktail. Will re-evaluate, likely discharge. 06/01/19 17:03 CBC shows small leukocytosis CMP reassuring Lipase negative Preg negative. UA pending. Patient now nontender on exam. Will re-vitalize, likely discharge. 06/01/19 18:51 Vitals normal. Discharge - Discharge Information Problems reviewed: Yes Clinical Impression/Diagnosis: Gastroenteritis Abdominal pain Qualifiers: Abdominal location: generalized Qualified Code(s): R10.84 - Generalized abdominal pain Condition: Good Disposition: HOME - Admission No - Additional Discharge Information Prescriptions: Ondansetron [Zofran *Odt*] 4 mg SL BID #6 od.tablet - Follow up/Referral Referrals: [facility] [place] [Provider Group] - Patient Discharge Instructions Patient Printed Discharge Instructions: DI for Diarrhea and Traveler's Diarrhea -- Adult Additional Instructions: Please return if you have any new, worsening or concerning symptoms, especially increased pain and vomiting. Please follow up with your primary care doctor this week. One is listed below if you do not have one. - Post Discharge Activity Work/Back to School Note: Back to Work
[2019-06-01 15:37] LABS: BASO % 0.2 % (0-2.0); EOS % 0.3 % (0-4.5); HEMATOCRIT 35.9 % (32.4-45.2); HEMOGLOBIN 11.8 GM/dL (10.7-15.3); LYMPH % 1.8 % (8-40); MCH 29.4 pg (25.7-33.7); MCHC 32.9 g/dl (32.0-36.0); MEAN CELL VOLUME 89.3 fl (80-96); MONO % 6.1 % (3.8-10.2); NEUT % 91.6 % (42.8-82.8); PLATELET COUNT 329 K/MM3 (134-434); RBC 4.02 M/mm3 (3.60-5.2); RDW 14.7 % (11.6-15.6); WHITE BLOOD COUNT 10.1 K/mm3 (4.0-10.0)
[2019-06-01 16:07] LABS: ALBUMIN 3.9 g/dl (3.4-5.0); BILIRUBIN,TOTAL 0.6 mg/dL (0.2-1); BLOOD UREA NITROGEN 9.8 mg/dL (7-18); CALCIUM 8.7 mg/dL (8.5-10.1); CREATININE 0.7 mg/dL (0.55-1.3); POTASSIUM 3.7 mmol/L (3.5-5.1); TOT PROT 7.4 g/dl (6.4-8.2)
[2019-06-01 17:17] LABS: MACROCYTOSIS 1+
[2019-06-01 17:18] LABS: PLATELET ESTIMATE ADEQUATE
[2019-06-01 18:19] VITALS: BP 98/63; PULSE 106; TEMP 98.4
[2019-06-01 18:49] LABS: PH,URINE 6.5 (5.0-8.0); URINE APPEARANCE CLEAR; URINE BILIRUBIN NEGATIVE (NEGATIVE); URINE COLOR YELLOW; URINE GLUCOSE (UA) NEGATIVE (NEGATIVE); URINE KETONE 1+ (NEGATIVE); URINE LEUK ESTERASE NEGATIVE (NEGATIVE); URINE NITRITE NEGATIVE (NEGATIVE); URINE PROTEIN NEGATIVE (NEGATIVE); URINE UROBILINOGEN 0.2 mg/dL (0.2-1.0)
--- NOTE | 2019-06-15 09:22 | PDOC ---
Documentation entered by Jadon Moon SCRIBE, acting as scribe for Scott Cobos MD. Scott Cobos MD: This documentation has been prepared by the Red jonas Nirvannie, SCRIBE, under my direction and personally reviewed by me in its entirety. I confirm that the documentation accurately reflects all work, treatment, procedures, and medical decision making performed by me. Attending Attestation - Resident Resident Name: Alan Olivier - ED Attending Attestation I have performed the following: I have examined & evaluated the patient, The case was reviewed & discussed with the resident, I agree w/resident's findings & plan, Exceptions are as noted - HPI HPI: 06/01/19 15:52 CC: Abdominal pain, vomiting, and diarrhea. HPI: The patient is a 23 year old female, with no significant past medical history, who presents to the emergency department with LUQ abdominal pain with associated diarrhea and vomiting. Patient is positive for sick contacts (sister has similar symptoms). She denies recent fevers, chills, headache or dizziness. She denies recent dysuria, frequency, urgency or hematuria. She denies recent chest pain or shortness of breath. Allergies: NKDA - Physicial Exam PE: Vitals: Triage Vital signs reviewed General Appearance: No acute distress, well nourished well developed, Head: Atraumatic, Cardiac: Regular rate and rhythym, no murmurs, no rubs, no gallops, Lungs: Clear to auscultation bilateral, good air movement bilaterally, Abdomen: Soft, non distended, normal bowel sounds, non tender to palpation Extremities: Full range of motion to all extremities, no cyanosis, clubbing, or edema Skin: Warm and dry, no rashes or lesions, no rash, no petechiae Psych: Normal mood, normal affect - Medical Decision Making 06/15/19 09:24 23 years old with left upper quadrant abdominal discomfort nausea vomiting diarrhea CBC shows slight leukocytosis labs otherwise unremarkable reevaluation patient feels much better after GI cocktail pain has improved no lower abdominal discomfort history examination most consistent given nausea vomiting and diarrhea with gastroenteritis Very strict abdominal pain return instructions discussed with patient Findings, the need for follow-up and strict return instructions discussed with patient.
== END 2019-06-01 18:20 | disposition home or self-care (01) ==
LOC: JER 13:54
PROC: 3E033NZ Introduction of Analgesics, Hypnotics, Sedatives into Peripheral Vein, Percutaneous Approach (ICD-10-PCS; principal; 2019-06-01)
PROC: 3E033GC Introduction of Other Therapeutic Substance into Peripheral Vein, Percutaneous Approach (ICD-10-PCS; 2019-06-01)
PROC: 3E0337Z Introduction of Electrolytic and Water Balance Substance into Peripheral Vein, Percutaneous Approach (ICD-10-PCS; 2019-06-01)
DX: K52.9 Noninfective gastroenteritis and colitis, unspecified (principal); R10.84 Generalized abdominal pain
CPT/HCPCS: 36415; 80053; 81003; 83690; 84703; 85025; 99283-25; J0131; J7030